=== PATIENT | male | born 1945 | race Caucasian/White ===

== ENCOUNTER → 2025-02-03 | Outpatient (CLI) | payer OTHER ==
[~2025-02-03] MED LIST: ATOR20; TAMS.4ER; TRIA15CR3
[2025-02-07 02:26] LABS: 11-NOR-9-CARBOXY-THC,URN,QUANT 23 ng/mL
== END | disposition home or self-care (01) ==
LOC: LAB SHORT 09:25 → LAB 09:25
PROVIDERS: Family Medicine
DX: F12.90 Cannabis use, unspecified, uncomplicated (principal)
CPT/HCPCS: G0480